=== PATIENT | male | born 1975 | race Caucasian/White ===

== ENCOUNTER 2020-08-27 08:31 | Inpatient (IN) | payer OTHER ==
[2020-08-27 09:56] LABS: BASOPHIL 0.3 % (0-2); EOSINOPHIL 0.3 % (0-5); HCT 48.7 % (42.0-52.0); HGB 16.4 g/dl (13.2-18.0); LYMPHOCYTE 8.1 % (15-48); MCH 31.8 pg (25.0-31.0); MCHC 33.7 g/dL (32.0-36.0); MCV 94.6 fL (78.0-100.0); MONOCYTE 9.7 % (0-12); NEUTROPHIL 81.3 % (41-80); NRBC 0; PLT 310 K/uL (150-400); RBC 5.15 M/uL (4.70-6.00); RDW 12.6 % (11.5-14.0); WBC 13.7 K/uL (4.0-10.5)
[2020-08-27 09:59] LABS: BILIRUBIN NEGATIVE (NEGATIVE); BLOOD NEGATIVE Ery/uL (NEGATIVE); CLARITY CLEAR (CLEAR); COLOR YELLOW (YELLOW); GLUCOSE (U) NORMAL (NORMAL); LEUKOCYTES NEGATIVE Leu/uL (NEGATIVE); NITRITE NEGATIVE (NEGATIVE); PROTEIN NEGATIVE (NEGATIVE); SPECIFIC GRAVITY 1.015 (1.001-1.030); UROBILINOGEN 0.2 mg/dL (0.2-1.0); pH 7.5 (5.0-9.0)
[2020-08-27 10:11] LABS: BILIRUBIN - TOTAL 0.8 mg/dL (0.2-1.0); BUN/CREAT RATIO (CALC) 8.2 RATIO; CREATININE 1.22 mg/dL (0.67-1.17); GLOBULIN (CALCULATION) 3.7 g/dL; POTASSIUM 3.7 mmol/L (3.5-5.1); TOTAL PROTEIN 7.7 g/dL (6.4-8.2)
[2020-08-27 10:24] LABS: LACTIC ACID 1.5 mmol/L (0.4-1.9)
[2020-08-27] MEDS ORDERED: MILK THISTLE PO (13:37)
[2020-08-27] MEDS ORDERED: LOVAZA1 GM PO (13:38)
[2020-08-27] MEDS ORDERED: DAILY MULTIPLE1 EAC1 PO (13:38)
[2020-08-29 10:53] LABS: BASOPHIL 0.3 % (0-2); HCT 39.2 % (42.0-52.0); HGB 13.1 g/dl (13.2-18.0); LYMPHOCYTE 10.6 % (15-48); MCHC 33.4 g/dL (32.0-36.0); MCV 95.6 fL (78.0-100.0); MONOCYTE 7.7 % (0-12); NEUTROPHIL 79.1 % (41-80); NRBC 0; PLT 285 K/uL (150-400); RDW 12.7 % (11.5-14.0)
[2020-08-30 04:43] LABS: HCT 36.6 % (42.0-52.0); HGB 12.3 g/dl (13.2-18.0); MCH 32.4 pg (25.0-31.0); MCHC 33.6 g/dL (32.0-36.0); MCV 96.3 fL (78.0-100.0); MPV 8.9 fL (6.0-9.5); RBC 3.8 M/uL (4.70-6.00); RDW 12.8 % (11.5-14.0); WBC 7.6 K/uL (4.0-10.5)
[2020-08-30 05:02] LABS: CREATININE 1.11 mg/dL (0.67-1.17); POTASSIUM 3.6 mmol/L (3.5-5.1)
[2020-08-31 05:46] LABS: HGB 12.4 g/dl (13.2-18.0); MCH 31.6 pg (25.0-31.0); MCHC 32.6 g/dL (32.0-36.0); MCV 96.7 fL (78.0-100.0); MPV 8.6 fL (6.0-9.5); RBC 3.93 M/uL (4.70-6.00); RDW 12.7 % (11.5-14.0); WBC 5.7 K/uL (4.0-10.5)
[2020-08-31 05:59] LABS: BUN/CREAT RATIO (CALC) 11.2 RATIO; CREATININE 1.07 mg/dL (0.67-1.17); POTASSIUM 4.8 mmol/L (3.5-5.1)
[2020-08-31] MEDS ORDERED: PERCOCET 5-3251 EACH PO (11:59)
[2020-08-31] MEDS ORDERED: AUGMENTIN 875-1 EACH PO (13:04)
== END 2020-08-31 13:36 | disposition home or self-care (01) | DRG 340 ==
LOC: FER 08:31 → FMS 12:07 → FOR 16:52 → FMS 16:53
PROVIDERS: Emergency Medicine; Student in an Organized Health Care Education/Training Program; ADMIT Surgery
PROC: 0DTJ0ZZ Resection of Appendix, Open Approach (ICD-10-PCS; principal; 2020-08-27 13:45)
PROC: 0WQF4ZZ Repair Abdominal Wall, Percutaneous Endoscopic Approach (ICD-10-PCS; 2020-08-27 13:45)
DX: K35.32 Acute appendicitis with perforation, localized peritonitis, and gangrene, without abscess (principal); Z20.828 Contact with and (suspected) exposure to other viral communicable diseases
CPT/HCPCS: 36415; 80048; 80053; 81003; 83605; 83690; 85025; 87040; 87088; 93005; J1100; J1170; J1644; J1885; J2250; J2270; J2405; J2543; J2704; J2710; J2800; J3010; J7030; J7050; J7120; Q9967; U0002